=== PATIENT | male | born 1950 | race American Indian/Alaskan Native ===

== ENCOUNTER 2018-01-26 11:46 | Outpatient (CLI) | payer BC ==
[2018-01-26 14:27] LABS: Total Cells Counted 100 /mm3
== END 2018-01-26 11:47 | disposition home or self-care (01) ==
LOC: LABHHL 11:46
PROVIDERS: ATTEND Orthopaedic Surgery
DX: M65.9 Synovitis and tenosynovitis, unspecified (principal); M25.462 Effusion, left knee
CPT/HCPCS: 85048; 87102; 87116; 87220; 89051